=== PATIENT | female | born 1985 | race Caucasian/White ===

== ENCOUNTER → 2023-09-27 07:27 | Outpatient (REF) | payer BC, SELFPAY | LOC: RAD 07:27 | PROVIDERS: ATTENDING PHYSICIAN Internal Medicine Hematology & Oncology; FAMILY PHYSICIAN Family Medicine | DX: C50.912 Malignant neoplasm of unspecified site of left female breast (principal); Z79.811 Long term (current) use of aromatase inhibitors | CPT/HCPCS: 77080 ==

== ENCOUNTER → 2024-01-11 07:19 | Outpatient (REF) | payer BC, SELFPAY | LOC: RAD 07:19 | PROVIDERS: ATTENDING PHYSICIAN Surgery Plastic and Reconstructive Surgery; FAMILY PHYSICIAN Family Medicine; OTHER PHYSICIAN Internal Medicine Hematology & Oncology; REFERRING PHYSICIAN Obstetrics & Gynecology | DX: K42.0 Umbilical hernia with obstruction, without gangrene (principal); K42.9 Umbilical hernia without obstruction or gangrene | CPT/HCPCS: 74177; Q9967 ==

== ENCOUNTER 2024-04-03 13:36 | Emergency (ER) | payer BC, SELFPAY ==
[2024-04-03] VITALS (9 sets, daily range): BP systolic 110–145; BP diastolic 70–100; BMI 32.1
--- NOTE | 2024-04-03 14:00 | EDRN ---
Keyshawn Vanegas PA in to see pt.
--- NOTE | 2024-04-03 14:06 | EDRN ---
Pt unable to speak, tachypneic w/ resp rate in 30's, sitting up in 90 degree angle, using accessory muscles to breathe, working hard to breathe, having pain described as tightness at 8/10 (worse when inhales and at times radiating into her
back/knifelike).
[2024-04-03] MEDS: DUONEB 3 ML INH ×2 (14:07→17:03)
--- NOTE | 2024-04-03 14:13 | ED.GENMED ---
History of Present Illness
<Landry Vanegas PA-C - Last Filed: 04/05/24 18:20>
General
Chief Complaint: Breathing Problem
Source: patient
Time Seen by Provider: 04/03/24 13:52
History of Present Illness
History of Present Illness:
39-year-old female with past medical history of breast cancer presenting to the emergency department for evaluation from primary care provider's office after she was diagnosed with strep throat this past at urgent care, had been taking
amoxicillin with some relief of symptoms noting today was the first day she did not have a sore throat but states yesterday started having some shortness of breath which got worse today and now with continued difficulty breathing. Patient did not
receive any medications prior to arrival. She does note that since she has had low-grade fevers but since yesterday has not had any. No she notes that her children at home were sick with similar illnesses recently. Denies any history of
lung related medical conditions. No other concerns at this time.
Past History
<Landry Vanegas PA-C - Last Filed: 04/05/24 18:20>
Past History
ED Past Medical History: Cancer and Other (anemia)
ED Past Surgical History: Appendectomy and Gynecological
Social History
Tobacco: Non-smoker
Alcohol: Occasional
Drug: None
Personal:
Living: with family
Review of Systems
<Landry Vanegas PA-C - Last Filed: 04/05/24 18:20>
Review of Systems
All Other Systems: ROS reviewed and negative except as documented in HPI and ROS
Phy Exam
<Landry Vanegas PA-C - Last Filed: 04/05/24 18:20>
Physical Exam
Physical Exam:
GENERAL: Alert , significant SOB noted, 1 sentence dyspnea
HEAD: NCAT
EYE: conjunctiva clear
NECK: Supple, no significant adenopathy.
ENT: o/p clr, mmm.
CARDIAC: Borderline tachycardic rate and normal rhythrm
LUNGS: Faint wheezing bilateral posterior lung kay, no stridor, tachypnea noted, accessory muscle use noted
NEUROLOGICAL: Alert and oriented
SKIN: Warm and dry, skin intact.
MUSCULOSKELETAL: well perfused. no edema
PSYCH: Normal and appropriate interaction.
Scores
<Landry Vanegas PA-C - Last Filed: 04/05/24 18:20>
Heart Failure Risk
Heart Failure Risk Score: Not Applicable
Heart Score for Chest Pain Patients
STEMI patient?: Not applicable
Withdrawal Assessment of Alcohol
Withdrawal Assessment Completed?: Not applicable
Course
<Landry Vanegas PA-C - Last Filed: 04/05/24 18:20>
Orders/Labs/Results
Orders:
Orders
04/03/24 13:44
Electrocardiogram (*1) Urgent
Reason for Study: Shortness of Breath
EKG- Treatment ONCE
04/03/24 13:59
Ipratropium/Albuterol Sulfate [Duoneb] 3 ml INH R NOW ONE
MethylPREDNISolone PF [Solu-Medrol Pf] 60 mg IV NOW STA
04/03/24 14:19
Basic Metabolic Panel Urgent
COVID-19 Antigen Urgent
Source: Nasal Swab
Complete Blood Count/With Diff Urgent
HCG, Serum Qualitative Screen Urgent
Comment: ADD ON
Monotest Urgent
Influenza A+B Rapid Molecular Urgent
NEO Source: Nasal Swab
Specimen Description:
04/03/24 14:56
CT Chest Pe Study Urgent
Comment:
Reason For Exam: SOB, tachy, hx breast cancer
04/03/24 14:58
Add On- LAB Urgent
Tests Added?: HCG qual
04/03/24 16:53
Ipratropium/Albuterol Sulfate [Duoneb] 3 ml INH R NOW ONE
04/03/24 18:36
Admit/Transfer Patient As Directed
Co-Sign Provider:
Level of Care: Observation services
Assign to:: Medical/Surgical
Physician / Group: ina deleon
Diagnosis: Conversational dyspnea concern for reactive airway disease, strep throat
Code Status As Directed
Resuscitation Status: Full Code
04/03/24 18:39
PRN Pain Medication Management As Directed
May give lesser potent ordered pain med per pt: Yes
preference::
Protocol:: Medication orders for pain may be administered in a
manner that supports deferring to patient preference
when the pt is:
- Requesting an ordered lesser potent pain medication.
Least to most potent pain medications are defined
as: acetaminophen < NSAID < tramadol < opioids
(morphine, oxycodone, hydromorphone).
- Requesting a lesser dose of the same medication IF
ORDERED.
- Requesting a less intrusive route of administration
if both routes are prescribed by the provider (PO <
IV).
Abnormal Lab Results
04/03/24
14:19
RBC 3.98 L 10^6/uL
(4.20-5.40)
Hct 35.2 L %
(37.0-47.0)
Carbon Dioxide 21 L mmol/L
(22-30)
Glucose 127 H mg/dl
(70-99)
Calcium 10.3 H mg/dl
(8.4-10.2)
04/03/24 14:19
04/03/24 14:19
Vital Signs
Initial and Last Documented VS:
Initial Vital Signs
Temp Pulse Resp BP Pulse Ox
97.7 F 124 18 145/100 100
04/03/24 13:39 04/03/24 13:39 04/03/24 13:39 04/03/24 13:39 04/03/24 13:39
Last Documented Vital Signs
Temp Pulse Resp BP Pulse Ox
97.7 F 90 16 123/80 98
04/03/24 13:39 04/03/24 20:15 04/03/24 20:15 04/03/24 20:14 04/03/24 20:15
<Clint Rosado, DO - Last Filed: 04/03/24 21:44>
Orders/Labs/Results
Orders:
Orders
04/03/24 13:44
Electrocardiogram (*1) Urgent
Reason for Study: Shortness of Breath
EKG- Treatment ONCE
04/03/24 13:59
Ipratropium/Albuterol Sulfate [Duoneb] 3 ml INH R NOW ONE
MethylPREDNISolone PF [Solu-Medrol Pf] 60 mg IV NOW STA
04/03/24 14:19
Basic Metabolic Panel Urgent
COVID-19 Antigen Urgent
Source: Nasal Swab
Complete Blood Count/With Diff Urgent
HCG, Serum Qualitative Screen Urgent
Comment: ADD ON
Monotest Urgent
Influenza A+B Rapid Molecular Urgent
ENO Source: Nasal Swab
Specimen Description:
04/03/24 14:56
CT Chest Pe Study Urgent
Comment:
Reason For Exam: SOB, tachy, hx breast cancer
04/03/24 14:58
Add On- LAB Urgent
Tests Added?: HCG qual
04/03/24 16:53
Ipratropium/Albuterol Sulfate [Duoneb] 3 ml INH R NOW ONE
04/03/24 18:36
Admit/Transfer Patient As Directed
Co-Sign Provider:
Level of Care: Observation services
Assign to:: Medical/Surgical
Physician / Group: htay,ina
Diagnosis: Conversational dyspnea concern for reactive airway disease, strep throat
Code Status As Directed
Resuscitation Status: Full Code
04/03/24 18:39
PRN Pain Medication Management As Directed
May give lesser potent ordered pain med per pt: Yes
preference::
Protocol:: Medication orders for pain may be administered in a
manner that supports deferring to patient preference
when the pt is:
- Requesting an ordered lesser potent pain medication.
Least to most potent pain medications are defined
as: acetaminophen < NSAID < tramadol < opioids
(morphine, oxycodone, hydromorphone).
- Requesting a lesser dose of the same medication IF
ORDERED.
- Requesting a less intrusive route of administration
if both routes are prescribed by the provider (PO <
IV).
Abnormal Lab Results
04/03/24
14:19
RBC 3.98 L 10^6/uL
(4.20-5.40)
Hct 35.2 L %
(37.0-47.0)
Carbon Dioxide 21 L mmol/L
(22-30)
Glucose 127 H mg/dl
(70-99)
Calcium 10.3 H mg/dl
(8.4-10.2)
04/03/24 14:19
04/03/24 14:19
Vital Signs
Initial and Last Documented VS:
Initial Vital Signs
Temp Pulse Resp BP Pulse Ox
97.7 F 124 18 145/100 100
04/03/24 13:39 04/03/24 13:39 04/03/24 13:39 04/03/24 13:39 04/03/24 13:39
Last Documented Vital Signs
Temp Pulse Resp BP Pulse Ox
97.7 F 90 16 123/80 98
04/03/24 13:39 04/03/24 20:15 04/03/24 20:15 04/03/24 20:14 04/03/24 20:15
<Landry Vanegas PA-C - Last Filed: 04/05/24 18:20>
MDM/Problems Addressed
Differential Diagnosis Includes:
pneumonia, reactive airway disease, PE, viral syndrome
MDM/Problems Addressed:
39-year-old female presenting to the emergency department for evaluation of gradually worsening shortness of breath since yesterday, initiated treatment for strep throat this past . Sent to the ER by primary care due to acute shortness of
breath this morning. Arrives tachypneic, mildly tachycardic, audible wheezing and 1 sentence dyspnea noted. Will treat with breathing treatment, steroid. Labs and chest x-ray ordered. Reassessment following
<Landry Vanegas PA-C - Last Filed: 04/05/24 18:20>
*Pulse Oximetry
Patient hypoxic: no
*EKG
Interpreted by ED Provider?: Yes
Heart Rate: 110
Rate: tachycardiac
Rhythm: sinus
[place]: normal axis
Ischemia: no ischemia
*Change Management Analyst Interpretation
Rate: normal
Rhythm: sinus
*Critical Care Note
Total Time (30-74mins, 75-104mins- exclusive of procedures): Not Applicable
<Landry Vanegas PA-C - Last Filed: 04/05/24 18:20>
Comment
Comment:
On reevaluation patient's tachypnea is slightly improved however still remains tachypneic. Tachycardia is now resolved with heart rate between 85 and 95 bpm. Patient still appears this especially when speaking. I canceled the chest x-ray and
ordered CT scan of the chest given patient's history of breast cancer combined with rather acute onset of her respiratory symptoms.
Patient Management
Escalation/DeEscalation of care consider admission/obs:
CT chest unremarkable for acute pathology. She did report improvement with nebs/steroids however on my re-eval she remains dyspneic with speaking and her RR increased to >30. Will give additional duoneb and reassess.
ED Attending Note
<Landry Vanegas PA-C - Last Filed: 04/05/24 18:20>
-
Portions of this chart may have been created with voice recognition software.� Occasional wrong word or��sound alike� substitutions may have occurred due to the inherent limitations of voice recognition software.
<Clint Rosado DO - Last Filed: 04/03/24 21:44>
ED Attending Note
Patient seen and examined by attending physician: Yes
I performed the substantive portion of visit, reviewed & personally made and approve the management plan that is documented in note by myself or KARI.: Yes
I performed a history and physical exam of patient and discussed management with resident, I reviewed resident's note and agree with documented findings and plan of care.: Yes
ED Attending Note:
I evaluated the patient at bedside. The patient's white count is normal, hCG negative, COVID-negative, CTA shows no PE, benign appearing groundglass foci noted on CT imaging but there is no focal consolidation pleural effusion or pneumothorax. She
was given DuoNebs. However when I evaluated the patient, she has rather significant conversational dyspnea. Respiratory rate is in the 30s. She does not appear well enough to be discharged. We did try IV steroids and she may benefit from further
nebs. Suspect more of a reactive airway disease type of picture. I offered and considered anxiolytic but she declines.
Discharge Plan
Departure
Patient Disposition: Admit
Date of Disposition: 04/03/24
Time of Disposition: 17:52
Presentation/result/management discussed w/ accepting MD/DO: Hospitalist
Discharge Problem:
RAD (reactive airway disease)
Prescriptions:
No Action
letrozole 2.5 mg Tablet
2.5 mg PO HS
amoxicillin 500 mg Capsule
500 mg PO TID
Patient Comments:
04/03/24: filled 03/30/24, to take for 10 days
ibuprofen 200 mg Tablet
400 mg PO Q6HPRN PRN (Reason: mild pain)
escitalopram oxalate 10 mg Tablet
10 mg PO HS
Interventions
Interventions:
*Risk Screen - Suicide Last Done: 04/03/24 13:39
*General Assessment Last Done: 04/03/24 13:39
*Neglect/Abuse Screening Last Done: 04/03/24 13:39
ED- Fall Risk Assessment Last Done: 04/03/24 14:15
*ED COVID-19 Vaccine History Last Done: 04/03/24 14:15
*Nursing Disposition Last Done: 04/03/24 20:20
ED- Cardiac Assessment Last Done: 04/03/24 14:15
ED- Pulmonary Assessment Last Done: 04/03/24 15:00
Discharge Date and Time
Discharge Date/Time: 04/03/24 20:20
Print Language: MACEDONIAN
[2024-04-03] MEDS: SOLU-MEDROL PF 60 MG IV (14:19)
[2024-04-03 14:48] LABS: % Basophils 0.3 % (0-2); % Immature Granulocytes 0.2 % (0-0.5); % Lymphocytes 25.1 % (20.5-51.1); % Monocytes 6.9 % (1.7-9.3); % Neutrophils 66.5 % (42.2-75.2); Absolute Eosinophils 0.1 10^3/uL (0-0.7); Absolute Lymphocytes 1.5 10^3/uL (1.2-3.4); Absolute Monocytes 0.4 10^3/uL (0.1-0.6); Absolute Neutrophils 3.8 10^3/uL (1.4-6.5); Hematocrit 35.2 % (37.0-47.0); Hemoglobin 12.1 g/dL (12.0-16.0); Mean Corp Hgb Conc. 34.4 g/dL (33.0-37.0); Mean Corpuscular Hgb 30.4 pg (27.0-31.0); Mean Corpuscular Volume 88.4 fL (81.0-99.0); Mean Platelet Volume 9.7 fL (7.4-10.4); Nucleated Red Blood Cells % 0 %; Platelet Count 246 10^3/uL (130-400); Red Blood Cell Count 3.98 10^6/uL (4.20-5.40); Red Cell Dist. Width 13.2 % (11.5-14.5); White Blood Cell Count 5.8 10^3/uL (4.8-10.8)
[2024-04-03 15:04] LABS: Blood Urea Nitrogen 16 mg/dl (7-17); Calcium 10.3 mg/dl (8.4-10.2); Carbon Dioxide 21 mmol/L (22-30); Chloride 106 mmol/L (98-107); Glucose 127 mg/dl (70-99); Sodium 143 mmol/L (135-145); eGFR > 60.00
[2024-04-03 15:21] LABS: COVID-19 Antigen Negative (Negative)
[2024-04-03 16:06] LABS: HCG, Serum Qualitative Screen Negative
--- NOTE | 2024-04-03 17:04 | EDRN ---
Pt unable to speak in complete sentences, increased work of breathing, RR 38.
--- NOTE | 2024-04-03 17:06 | EDRN ---
Resp rate 38-44 at this time sitting on stretcher.
--- NOTE | 2024-04-03 17:41 | EDRN ---
Dr. Rosado in room w/ pt. Keyshawn TOSCANO passed off information on pt to Dr. Rosado.
--- NOTE | 2024-04-03 18:02 | HPS.HSE ---
Addendum entered and electronically signed by YAZMIN Campa 04/03/24 20:26:
Patient wanting to leave AGAINST MEDICAL ADVICE. She is aware of her current diagnosis possible reactive airway disease. She reports earlier when she was going to be discharged by the emergency room physician prednisone and albuterol inhaler were
called into her pharmacy. She had her family member pick those medications up. I advised the patient to start her prednisone tomorrow as she received a dose in the ER. I also advised her she may use the albuterol every 4 hours as needed for
wheezing. She was also informed to follow-up with her primary care provider if symptoms became worse at any point. I reclarified with the patient who states that she did have some episodes of nausea with vomiting yesterday and has a headache
today. She also states that strep was going through her home not over the past 6 to 7 weeks. It was being passed every 3 to 4 days from 1 child to the next then to her. She has a family member at bedside driving her home.
Original Note:
Family Physician
-
Family Physician: Elena Stout
Chief Complaint
-
Conversational dyspnea
History of Present Illness
39-year-old female from primary care office sent in for shortness of breath with conversational dyspnea that started yesterday. She was recently diagnosed with strep throat on at urgent care 03/30/2024 placed on amoxicillin 500 3 times
daily and prednisone. She also reports low-grade fevers with Tmax 101.5F that started on and resolved yesterday 04/02/2024. She also reports her children at home were sick with strep that been throughout her home over the past 6 to 7 weeks
passing from 1 person to the next. She states this a.m. her throat was feeling much better in the white pus is now gone. She reports today was the first day she was able to swallow and eat food without pain. She denies headache, chest pain,
palpitations, abdominal pain, nausea, vomiting, diarrhea, urinary symptoms. She becomes very anxious when talking about her medical history as she states over the past 3 to 4 years due to getting tons of treatment for cancer. She does report
history of erythromycin allergy with shortness of breath
She has past medical history of left-sided breast cancer HER2 positive, status post chemo, radiation ending 03/24/2021, September 2021, double mastectomy with sentinel lymph node removal and partial reconstruction April 2021, AMI flap procedure
02/21/2022, chronic left arm lymphedema, neuropathy, anemia, ex-smoker, depression
Medical History
Past Medical History
Past Medical History: Reports Other
Additional Past Medical History:
left-sided breast cancer HER2 positive,-status post chemo, radiation ending 03/24/2021, September 2021
double mastectomy with sentinel lymph node removal and partial reconstruction April 2021, AMI flap procedure 02/21/2022,
Chronic left arm lymphedema from mastectomy
Neuropathy
anemia
ex-smoker
depression
Past Surgical History: Reports Other
Additional Past Surgical History:
left-sided breast cancer,-status post chemo, radiation ending 03/24/2021, September 2021
double mastectomy with sentinel lymph node removal and partial reconstruction April 2021, AMI flap procedure 02/21/2022,
Social History
Tobacco: Former Smoker (Reports smoked from age [age])
Alcohol: Occasional
Drug: None
Personal:
Living: With Family
Employment: Employed (special education math teacher)
Family History
Family History: Not pertinent
Allergies / Home Medications
Allergies reflects when Allergies were last updated in [employer].
Home Medications with original date entered in [employer]
Allergy/Medication List:
Allergies
Allergy/AdvReac Type Severity Reaction Status Date / Time
cefazolin [From [facility]] Allergy Rash Verified 04/03/24 13:38
erythromycin base Allergy Shortness Verified 04/03/24 13:38
of Breath
Home Medications
letrozole 2.5 mg tablet 2.5 mg PO HS breast cancer 02/12/22
amoxicillin 500 mg capsule 500 mg PO TID 04/03/24
escitalopram oxalate 10 mg tablet 10 mg PO HS 04/03/24
ibuprofen 200 mg tablet 400 mg PO Q6HPRN PRN mild pain 04/03/24
Review of Systems
-
History Source: Patient
Constitutional: Denies Fever or Chills
EENT: Reports Sore Throat; Denies Mouth Pain, Mouth Swelling or Runny Nose
Respiratory: Reports Cough (Dry nonproductive) and Trouble Breathing (Conversational shortness of breath)
Cardiac: Denies Chest Pain, Diaphoresis, Palpitations or Syncope
Abdomen/GI: Denies Abdominal Pain, Nausea, Vomiting, Diarrhea, Constipated or Bloody Stools
: Denies Dysuria, Frequency, Flank Pain, Incontinence, Difficulty Voiding or Urgency
Musculoskeletal: Denies Joint Pain or Edema
Skin: Reports Rash (Had macular hive-like rash that came and went during bedside conversation to right and left upper chest); Denies Itching
Neurological: Denies Dizzy, Headache or Weakness
Endocrine: Reports No Symptoms
Hematologic/Lymphatic: Reports No Symptoms
Psych: Reports Anxiety
Physical Exam
Vital Signs
Vital Signs
Temp Pulse Resp BP Pulse Ox
97.7 F 91 26 120/70 100
04/03/24 13:39 04/03/24 18:00 04/03/24 18:00 04/03/24 18:00 04/03/24 18:00
Physical Exam
General: Conversant, Obese and Other (Anxious); No Fever or Chills
HEENT: NormoCephalic, Anicteric, PERRLA, [place] Conjunctivae and Pharyngeal Erythema (Right side pharyngeal negative tonsillar exudate); No Thrush
Respiratory: No Wheezes, Rales or Rhonchi
Cardiac: S1/S2 and Regular Rhythm; No Murmur, Rub, Gallop or Peripheral Edema
Breast: Deferred by me
GI: Soft, Non Tender, Non Distended, Normal Bowel Sounds and No Hepatosplenomegaly
Rectal: Deferred by Provider
Musculoskeletal: No Clubbing, No Cyanosis and No Edema
Skin: Warm, Dry and Rash (Had macular hive-like rash that came and went during bedside conversation to right and left upper chest)
Neuro: AO x 3, No Motor Deficits, Nonfocal/grossly intact and No Sensory Deficits; No Slurred Speech, Facial Droop, Tremors or Sedated
Psych: Anxious
Laboratory Results
-
04/03/24 14:19
04/03/24 14:19
Data Reviewed
-
CT Scan: Report Reviewed by me
Lab Data: Labs Reviewed by me
Impression/Plan
-
Impression/plan:
OBS MedSurg
#Acute dyspnea concern for reactive airway disease
#Chronic small groundglass foci 0.6 cm right upper lobe and 0.7 right middle lobe no change from 01/08/2022 were benign
-COVID/flu negative
99% RA
-Blood prednisone 60 mg given in ER
-Will start Medrol Dosepak
-DuoNebs as needed
#Rash secondary to anxiety
-macular hive-like rash that came and resolved during bedside conversation to right and left upper chest
#Recent Dx Strep throat
-cont amoxicillin 500 mg 3 times daily
#HER2 positive Left-sided breast cancer
#status post chemo, radiation ending 03/24/2021, September 2021
#Double mastectomy with sentinel lymph node removal and partial reconstruction April 2021, AMI flap procedure 02/21/2022
#Chronic left arm lymphedema from mastectomy
#Neuropathy
#Anemia hx
Hgb 12.1
#Ex-smoker
Patient reports smoked for 1 year age [age]
#Depression
-Continue Lexapro 10 mg at bedtime
DVT prophylaxis
Subcu Lovenox
Full code
--- NOTE | 2024-04-03 18:03 | EDRN ---
Pt states pain remains a 7/10 and when she breathes in it radiates into her back at this time, pain described as tightness.
--- NOTE | 2024-04-03 18:15 | EDRN ---
Soha Olivier LITERACY TUTOR in to see pt at this time.
--- NOTE | 2024-04-03 18:31 | W.PN.UPDATE ---
Addendum entered and electronically signed by Johnnie Herrera MD 04/03/24 18:42:
POS Strep sorehead as of 03/30/24
Improved sore throat
- <del>Hold</del> <del>Amoxicillin</del> <del>due</del> <del>to</del> <del>rash</del>
- cont Amoxicillin
Original Note:
Update Note
Progress Note Update
This note serves as an addendum to the H&P by irrigation laborer KARI Cris BAEZ
HPI
39F Non smoker, HX HER2 POS Breast CA, s/p double mastectomy, LN resection, XRT and chemo, recently Dxed POS strep throat on at [facility] seen at ER for eval for tremendous amount of conversational dyspnea. Intermittently tachycardic in 120s,
and tachypnic RR in 30s. on reassessment despite, nebs and steroids.
- Noted she notes that her children at home were sick with similar illnesses recently.
- Denies any history of lung related medical conditions.
- she decline any anxiolytic med
PHX; as above
Reviewed VS: unremarkable
PE
Gen: Anxious and intermittently tachypnic
HEENT: slight erythema of parynx on Rt. No exudate
Neck: supple
Lungs: Faint wheezing bilateral posterior lung kay, no stridor, tachypnea noted, accessory muscle use noted
Cor: RRR ST , S1 S2
Abdomen: benign exam
LADLE POURER: AAO3 NFND
MS: No edema
Derm; maculopapular rash on upper chest which spontaneusly resolved , but got the picture
Psych: anxious
Data
WCC 5.8
CO2 21
Ca 10.3
NEG HCG
NEG Covid
NEG Flu A & B
CTC PE protocol
No CTA evidence for an acute pulmonary thromboembolism.
EKG
SINUS TACHYCARDIA
MINIMAL VOLTAGE CRITERIA FOR LVH, MAY BE NORMAL VARIANT ( R in aVL )
BORDERLINE ECG
WHEN COMPARED WITH ECG OF 18-FEB-2022 04:59,
NO SIGNIFICANT CHANGE WAS FOUND
No Prior hospitalist admission:
ASSESSMENT & PLAN
Dyspneic and tachypneic with adequate Oxygenation POx hi 90s
faint wheezing bilateral posterior lung kay
NEG CTC for PE
NEG Covid. NEG Flu A & B
- DDX: Reactive AW dz, acute viral bronchitis
- Empiric Medrol dose pack , DuoNebs
- F/U POx
Acute maculopapular rash - spontaneously resolved at ER ? Anxiety related
Suspect Underlying EB virus infection
- to complete the of Amoxicillin ( clinically doubt drug rash)
- check Monospot test
POS Strep sorehead as of 03/30/24
Improved sore throat
- Hold Amoxicillin due to rash
HX HER2 POS Breast CA, s/p double mastectomy, LN resection, XRT and chemo
- on Letrozole
Depression -
stable on Escitalopram
DVT Px: LMWH
Code: Full code
Obs MS
[2024-04-03 19:49] LABS: Monotest Negative (Negative)
== END 2024-04-03 20:20 | disposition still patient (30) ==
LOC: EMR 13:36
PROVIDERS: Clinical Nurse Specialist Family Health; Physician Assistant Medical; EMERGENCY PHYSICIAN Emergency Medicine; FAMILY PHYSICIAN Family Medicine
DX: J45.909 Unspecified asthma, uncomplicated (principal); Z11.52 Encounter for screening for COVID-19
CPT/HCPCS: 99285; 96374; 94640; 71275; 80048; 84703; 85025; 86308; 87502; 87811; 93005; Q9967